=== PATIENT | female | born 1960 | race Caucasian/White ===

== ENCOUNTER → 2017-03-22 | Outpatient (CLI) | payer BC | LOC: FIMAGING 09:54 | DX: Z12.31 Encounter for screening mammogram for malignant neoplasm of breast (principal) | CPT/HCPCS: G0202 ==

== ENCOUNTER → 2018-03-25 | Outpatient (CLI) | payer BC | LOC: FIMAGING 14:20 | PROVIDERS: ATTEND Family Medicine | DX: Z12.31 Encounter for screening mammogram for malignant neoplasm of breast (principal) ==

== ENCOUNTER → 2019-05-19 | Outpatient (CLI) | payer BC | LOC: FIMAGING 15:03 ==